=== PATIENT | male | born 1960 | race Caucasian/White ===

== ENCOUNTER 2023-03-30 10:55 | Day surgery (SDC) | payer OTHER ==
[2023-03-29 17:01] LABS: BASOPHILS # (AUTO) 0.1 X10'3 (0-0.2); EOSINOPHILS # (AUTO) 0.3 X10'3 (0-0.9); EOSINOPHILS % (AUTO) 3.5 % (0-6); HEMATOCRIT 42.6 % (42.0-52.0); HEMOGLOBIN 14.3 g/dl (14.0-17.9); LYMPHOCYTES # (AUTO) 1.9 X10'3 (1.1-4.8); LYMPHOCYTES % (AUTO) 21.2 % (21-51); MEAN CORPUSCULAR HEMOGLOBIN 28.9 PG (27.0-31.0); MEAN CORPUSCULAR HGB CONC 33.5 g/dL (33.0-36.5); MEAN CORPUSCULAR VOLUME 86.3 FL (78-98); MONOCYTES # (AUTO) 0.8 X10'3 (0-0.9); NEUTROPHILS # (AUTO) 5.9 X10'3 (1.8-7.7); NEUTROPHILS % (AUTO) 65.3 % (42-75); PLATELET COUNT 325 X10'3 (140-440); RED BLOOD COUNT 4.94 X10'6 (4.70-6.10); RED CELL DISTRIBUTION WIDTH 14.8 % (11.5-14.5)
[2023-03-29 17:08] LABS: ALBUMIN 4.4 G/DL (3.4-5.0); ANION GAP 10 (8-16); BLOOD UREA NITROGEN 23 MG/DL (7-18); BUN/CREATININE RATIO 19.5 (10.0-20.0); CALCIUM 8.7 MG/DL (8.5-10.1); CHLORIDE 104 MMOL/L (99-107); CREATININE 1.18 MG/DL (0.60-1.10); GLUCOSE 108 MG/DL (70-104); SODIUM 138 MMOL/L (135-145); TOTAL CARBON DIOXIDE 23.9 MMOL/L (24-32); eGFR 62 ML/MIN
[2023-03-29 17:10] LABS: APTT 30 SECONDS (22-32)
[~2023-03-30] VITALS: Ht 182.9 cm; Wt 126.1 kg
[2023-03-30] VITALS (10 sets, daily range): BP systolic 88–120; BP diastolic 49–70; PULSE 69–87; RESP 12–16; TEMP 97.6; O2SAT 93–99
[2023-03-30] MEDS ORDERED: normal saline 1,000 ML IV SCH ×3 (11:15→15:45)
[2023-03-30] MEDS ORDERED: diphenhydrAMINE 25mg capsule PO PRN ×2 (11:15→11:20)
[2023-03-30] MEDS ORDERED: LORazepam 0.5 MG tablet PO PRN ×2 (11:15→11:20)
[2023-03-30] MEDS ORDERED: sodium bicarbonate 1meq/ml syr 150 ML in dextrose 5%-water 1,000 ML IV SCH (11:15)
[2023-03-30] MEDS ORDERED: acetylcysteine 200 MG/ml 4ml vial PO PRN (11:17)
[2023-03-30] MEDS ORDERED: METO-384 PO (11:23)
[2023-03-30] MEDS ORDERED: LISI5TAB22 PO (11:23)
[2023-03-30] MEDS ORDERED: DILT120T3 PO (11:23)
[2023-03-30] MEDS ORDERED: APIX5TAB3 PO (11:23)
[2023-03-30] MEDS ORDERED: NAPR-1170 PO (11:23)
[2023-03-30] MEDS ORDERED: ATOR40TA72 PO (11:23)
[2023-03-30] MEDS ORDERED: DIGO250T2 PO (11:23)
[2023-03-30] MEDS ORDERED: LIDOcaine 1% (10mg/ml) 2ml vial ONE (13:08)
[2023-03-30] MEDS ORDERED: iohexol 350MG/ML 100ml bottle IV ONE (13:08)
[2023-03-30] MEDS ORDERED: midazolam 1 mg/ML 2ml injection ONE (13:08)
[2023-03-30] MEDS ORDERED: iohexol 350 MG/ML 50ML vial IV ONE (13:08)
[2023-03-30] MEDS ORDERED: verapamil 2.5 mg/ml inj IV ONE (13:08)
[2023-03-30] MEDS ORDERED: fentaNYL/PF 50MCG/1 ML 2ML syringe ONE (13:08)
[2023-03-30] MEDS ORDERED: heparin 1,000unit/ml 10ml vial 10 ML ONE (13:08)
[2023-03-30] MEDS ORDERED: nitroGLYCERIN 500mcg/5mL D5W 5 ML IV ONE (13:09)
[2023-04-02 06:52] LABS: ISTAT HGB MIX 12.6 g/dl (14.0-17.9); ISTAT Hct MIX 37 %PCV (42-52); ISTAT O2 SATURATION MIX VENOUS 61 % (60-80); ISTAT SOURCE BLNK
[2023-04-02 06:52] LABS: ISTAT HGB ART 12.9 g/dl (14.0-17.9); ISTAT Hct ART 38 %PCV (42-52); ISTAT O2 SATURATION ARTERIAL 96 % (95-98); ISTAT SOURCE BLNK
== END 2023-03-30 19:00 | disposition home or self-care (01) ==
LOC: SSTAY O 10:55
PROVIDERS: ATTEND Internal Medicine Cardiovascular Disease
DX: I25.10 Atherosclerotic heart disease of native coronary artery without angina pectoris (principal); I11.0 Hypertensive heart disease with heart failure; I50.22 Chronic systolic (congestive) heart failure; E78.5 Hyperlipidemia, unspecified; I48.91 Unspecified atrial fibrillation; I42.0 Dilated cardiomyopathy; I27.20 Pulmonary hypertension, unspecified; I08.1 Rheumatic disorders of both mitral and tricuspid valves; E66.3 Overweight; Z68.37 Body mass index [BMI] 37.0-37.9, adult; Z79.899 Other long term (current) drug therapy; Z79.82 Long term (current) use of aspirin; Z79.01 Long term (current) use of anticoagulants; Z98.890 Other specified postprocedural states; Z87.891 Personal history of nicotine dependence
CPT/HCPCS: 36415; 76937; 80048; 82803; 85014; 85025; 85610; 85730; 93005; 93460; 99152; 99153; J1644; J2250; J3010; J3490; J7030; J7070; Q0163; Q9967; A6258; A6402; C1725; C1751; C1769; C1894